=== PATIENT | male | born 1995 | race Hispanic/Latino ===

== ENCOUNTER 2019-05-22 17:28 | Emergency (ER) | payer OTHER ==
--- NOTE | 2019-05-22 18:02 | ED.PDOC ---
History of Present Illness - General Chief Complaint: ENT Problem Stated Complaint: strep throat, vomiting Time Seen by Provider: 05/22/19 17:52 Source: patient Exam Limitations: no limitations - History of Present Illness Initial Comments: Patient presents with a sore throat and fever for 4 days. He had N/V x 5 yesterday. He was seen at an outside clinic and diagnosed with streptococcal pharyngitis yesterday. He was given an RX for amoxicillin and has had 3 doses. He has not had N/V today but his fever has not resolved and he says that he feels worse. Has odynophagia. No other complaints. Timing/Duration: other - 4 days Severity: moderate Improving Factors: nothing Worsening Factors: nothing Associated Symptoms: other - as in HPI Allergies/Adverse Reactions: Allergies NO KNOWN ALLERGY Allergy (Verified 05/22/19 17:36) Home Medications: Ambulatory Orders Amoxicillin 875 mg PO DAILY 05/22/19 Promethazine Tab [Phenergan Tablet] 25 mg PO Q4H PRN 05/22/19 Review of Systems - Review of Systems Constitutional: States: fever EENTM: States: see HPI Respiratory: States: no symptoms reported Cardiology: States: no symptoms reported Gastrointestinal/Abdominal: States: no symptoms reported Genitourinary: States: no symptoms reported Musculoskeletal: States: no symptoms reported Skin: States: no symptoms reported Neurological: States: no symptoms reported Endocrine: States: no symptoms reported Hematologic/Lymphatic: States: no symptoms reported Past Medical History (General) - Patient Medical History Hx Asthma: No Hx Cardiac Disorders: No Hx Congestive Heart Failure: No Hx Thyroid Disease: No Hx Diabetes: No Surgical History: tonsillectomy - Social History Hx Tobacco Use: No Family Medical History - Family History Mother Family History: No Known Physical Exam - Physical Exam General Appearance: Alert Eye Exam: bilateral normal Ears, Nose, Throat: pharyngeal erythema, tonsillar exudate Neck: supple, lymphadenopathy (R), tender lateral Respiratory: chest non-tender, lungs clear, normal breath sounds, no respiratory distress Cardiovascular/Chest: normal peripheral pulses, regular rate, rhythm, no edema Gastrointestinal/Abdominal: normal bowel sounds, non tender, soft Skin Exam: normal color Progress - Progress Progress: 05/22/19 18:30 Laboratory Tests 05/22/19 05/22/19 05/22/19 17:55 17:55 18:13 WBC 8.3 RBC 5.61 Hgb 15.1 Hct 44.0 MCV 78.5 L MCH 26.9 L MCHC 34.3 RDW 14.2 Plt Count 164 MPV 7.8 Absolute Neuts (auto) 6.60 Absolute Lymphs (auto) 0.70 L Absolute Monos (auto) 1.00 H Absolute Eos (auto) 0.00 Absolute Basos (auto) 0.00 Neutrophils % 79.3 H Lymphocytes % 7.9 L Monocytes % 12.4 H Eosinophils % 0.0 L Basophils % 0.4 Sodium 137 Potassium 3.9 Chloride 103 Carbon Dioxide 24 Anion Gap 13.9 BUN 9 Creatinine 0.73 BUN/Creatinine Ratio 12.3 Random Glucose 110 H Serum Osmolality 273.1 L Calcium 9.0 Total Bilirubin 1.2 H AST 24 ALT 35 Alkaline Phosphatase 79 Serum Total Protein 8.6 H Albumin 4.3 Globulin 4.3 H Albumin/Globulin Ratio 1.0 L Urine Color Urine Appearance Urine pH Ur Specific Harrison Urine Protein Urine Glucose (UA) Urine Ketones Urine Blood Urine Nitrite Urine Bilirubin Urine Urobilinogen Ur Leukocyte Esterase Urine RBC Urine WBC Ur Epithelial Cells Amorphous Sediment Urine Bacteria Urine Mucus Group A Strep Rapid Negative 05/22/19 18:13 WBC RBC Hgb Hct MCV MCH MCHC RDW Plt Count MPV Absolute Neuts (auto) Absolute Lymphs (auto) Absolute Monos (auto) Absolute Eos (auto) Absolute Basos (auto) Neutrophils % Lymphocytes % Monocytes % Eosinophils % Basophils % Sodium Potassium Chloride Carbon Dioxide Anion Gap BUN Creatinine BUN/Creatinine Ratio Random Glucose Serum Osmolality Calcium Total Bilirubin AST ALT Alkaline Phosphatase Serum Total Protein Albumin Globulin Albumin/Globulin Ratio Urine Color Yellow Urine Appearance Clear Urine pH 7.5 Ur Specific Harrison 1.020 Urine Protein 30 Urine Glucose (UA) Negative Urine Ketones Negative Urine Blood Negative Urine Nitrite Negative Urine Bilirubin Negative Urine Urobilinogen 4.0 H Ur Leukocyte Esterase Negative Urine RBC 0-1 Urine WBC 0-1 Ur Epithelial Cells 0-1 Amorphous Sediment 1+ Urine Bacteria 0 Urine Mucus Small Group A Strep Rapid Rapid strep negative. this could be a false negative or the patient's amoxicillin has already started to clear enough bacteria to make the test negative. Another possibility is that the outside clinic had a false positive and the patient has a viral URI. I discussed the possibilities with the patient and it was mutually decided to administer Bicillin LA 1.2 million units IM x one for definitive cure if it is strep and have him stop the amoxicillin. Care instructions given. E.R. warnings given. Questions were elicited and answered. Patient voiced understanding and agreement with the plan. Departure - Departure Clinical Impression: Pharyngitis Disposition: Discharge to Home or Self Care Condition: Good Departure Forms: ED Discharge - Pt. Copy, Patient Portal Self Enrollment Instructions: Sore Throat, Adult (DC) Diet: resume usual diet, other - increase oral fluids Home Medications: Ambulatory Orders Amoxicillin 875 mg PO DAILY 05/22/19 Promethazine Tab [Phenergan Tablet] 25 mg PO Q4H PRN 05/22/19 Additional Instructions: Increase oral fluids. Over the counter throat lozenges or chloroseptic for sore throat relief. Ibubrofen or tylenol for pain and fever control. Return to the E.R. if you still have a temperature above 100.3 in 48 hours.
[2019-05-22] MEDS ORDERED: PENICILLIN BENZATHINE 1.2 MU 1.2 MU/2 ML SYG IM ONE (18:30)
[2019-05-22 18:39] VITALS: BP 137/89; TEMP 101.5; O2SAT 95
[2019-05-22] MEDS ORDERED: IBUPROFEN 200 MG TAB PO ONE (18:39)
== END 2019-05-22 18:51 | disposition home or self-care (01) ==
LOC: ER 17:28
DX: J02.9 Acute pharyngitis, unspecified (principal)
CPT/HCPCS: 36415; 80053; 81001; 85025; 87070; 87880; J0561

== ENCOUNTER 2019-05-23 15:42 | Emergency (ER) | payer OTHER ==
[2019-05-23] MEDS ORDERED: valACYclovir 500 MG TAB PO ONE (16:19)
[2019-05-23] MEDS ORDERED: IBUPROFEN 200 MG TAB PO ONE (16:19)
[2019-05-23] MEDS ORDERED: ONDANSETRON ODT 8 MG TAB SL ONE (16:19)
[2019-05-23 16:21] VITALS: O2SAT 95
--- NOTE | 2019-05-23 16:22 | ED.PDOC ---
History of Present Illness - General Chief Complaint: Fever Stated Complaint: FEVER Time Seen by Provider: 05/23/19 16:19 Source: patient Exam Limitations: no limitations - History of Present Illness Initial Comments: the patient's 23-year-old male presenting to emergency room secondary to 3 days of feeling poorly including sore throat, headache and some intermittent nausea and vomiting. He was recently taking care of his father who was recently admitted for a primary herpes infectionto the hospital. The patient does have posterior oropharyngeal ulcers. He does have a fever. No nuchal rigidity. No point abdominal pain. No rebound or peritoneal signs. He did test positive for strep 2 days ago and did receive a shot of penicillin. Pharynx looks more consistent with a viral pharyngitis and given the history most likely HSV. He does appear well hydrated. No acute distress. Timing/Duration: other Severity: moderate - 3 days Improving Factors: nothing Worsening Factors: nothing Associated Symptoms: headaches, malaise, nausea/vomiting Allergies/Adverse Reactions: Allergies NO KNOWN ALLERGY Allergy (Verified 05/22/19 17:36) Home Medications: Ambulatory Orders Promethazine Tab [Phenergan Tablet] 25 mg PO Q4H PRN 05/22/19 Ondansetron [Ondansetron Odt] 4 mg PO Q8HR PRN #10 tab 05/23/19 Valacyclovir HCl [Valtrex] 1 gm PO BID #10 tab 05/23/19 Review of Systems - Review of Systems Constitutional: States: fever, malaise EENTM: States: throat pain Respiratory: States: no symptoms reported Cardiology: States: no symptoms reported Gastrointestinal/Abdominal: States: nausea, vomiting Genitourinary: States: no symptoms reported Musculoskeletal: States: other - generalized body aches Skin: States: no symptoms reported Neurological: States: headache Endocrine: States: no symptoms reported All other Systems: No Change from Baseline Past Medical History (General) - Patient Medical History Hx Asthma: No Hx Cardiac Disorders: No Hx Congestive Heart Failure: No Hx Thyroid Disease: No Hx Diabetes: No - Social History Hx Tobacco Use: No Family Medical History - Family History Mother Family History: No Known Physical Exam - Physical Exam General Appearance: Alert, Comfortable, No apparent distress Eye Exam: bilateral normal Ears, Nose, Throat: hearing grossly normal, other - posterior or pharyngeal ulcers. Neck: full range of motion, supple Respiratory: lungs clear, normal breath sounds, no respiratory distress, no accessory muscle use Cardiovascular/Chest: normal peripheral pulses, regular rate, rhythm, no edema Peripheral Pulses: radial,right: 2+, radial,left: 2+, dorsalis pedis,right: 2+, dorsalis pedis,left: 2+ Gastrointestinal/Abdominal: non tender - no rebound or peritoneal signs., soft Rectal Exam: deferred Back Exam: no CVA tenderness, no vertebral tenderness Extremity: non-tender, normal inspection, no pedal edema, normal capillary refill Neurologic: brand planner II-XII nml as tested, alert, normal mood/affect, oriented x 3 Skin Exam: normal color Comments: Vital Signs - 24 hr 05/23/19 16:17 Temperature 100.7 F H Pulse Rate [ 115 H MONITOR] Respiratory 18 Rate Blood Pressure 147/99 [LA] O2 Sat by Pulse 95 Oximetry Progress - Progress Progress: 05/23/19 16:22 the patient's 23-year-old male presenting to the emergency room with what appears to be a primary oropharyngeal herpes infection with associated symptoms. He will be written for Valtrex for the treatment course. He needs to keep himself well-hydrated. He will be written for Zofran to control nausea and vomiting. He needs to take [id number] Pepcid twice daily for the next week as well. Needs to maintain a bland diet. Motrin can be used at 800 mg 3 times a day for the next 2-3 days only. Tylenol can be used intermittently as needed for symptom relief. He is contagious at this point. ER warnings were given. Departure - Departure Clinical Impression: Primary herpes simplex infection of oral region Nausea and vomiting Qualifiers: Vomiting type: unspecified Vomiting Intractability: non-intractable Qualified Code(s): R11.2 - Nausea with vomiting, unspecified Disposition: Discharge to Home or Self Care Condition: Fair Departure Forms: ED Discharge - Pt. Copy, Patient Portal Self Enrollment Instructions: Cold Sores (Oral Herpes) (DC) Diet: bland diet Activity: increase activity as tolerated Prescriptions: Ondansetron [Ondansetron Odt] 4 mg PO Q8HR PRN #10 tab PRN Reason: Nausea/Vomiting Valacyclovir HCl [Valtrex] 1 gm PO BID #10 tab Home Medications: Ambulatory Orders Promethazine Tab [Phenergan Tablet] 25 mg PO Q4H PRN 05/22/19 Ondansetron [Ondansetron Odt] 4 mg PO Q8HR PRN #10 tab 05/23/19 Valacyclovir HCl [Valtrex] 1 gm PO BID #10 tab 05/23/19 Additional Instructions: the patient's 23-year-old male presenting to the emergency room with what appears to be a primary oropharyngeal herpes infection with associated symptoms. He will be written for Valtrex for the treatment course. He needs to keep himself well-hydrated. He will be written for Zofran to control nausea and vomiting. He needs to take [id number] Pepcid twice daily for the next week as well. Needs to maintain a bland diet. Motrin can be used at 800 mg 3 times a day for the next 2-3 days only. Tylenol can be used intermittently as needed for symptom relief. He is contagious at this point. ER warnings were given.
[2019-05-23 16:39] VITALS: BP 147/105; TEMP 100
== END 2019-05-23 16:37 | disposition home or self-care (01) ==
LOC: ER 15:42
DX: R11.2 Nausea with vomiting, unspecified (principal); B00.2 Herpesviral gingivostomatitis and pharyngotonsillitis